=== PATIENT | female | born 1965 | race African-American/Black ===

== ENCOUNTER 2017-06-05 18:40 | Emergency (ER) | payer OTHER ==
[2017-06-05 19:06] VITALS: BP 118/68; PULSE 92; TEMP 97.9; BMI 40.6
[2017-06-05] MEDS ORDERED: ACETAMINOPHEN 325 MG TABLET (FP) ONE (19:36)
[2017-06-05] MEDS ORDERED: ACETAMINOPHEN 325 MG TABLET (FP) PO ONE (19:37)
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
== END 2017-06-05 21:56 | disposition home or self-care (01) ==
LOC: JERFT 18:40
DX: S09.8XXA Other specified injuries of head, initial encounter (principal); R51 Headache; V48.6XXA Car passenger injured in noncollision transport accident in traffic accident, initial encounter; Y92.414 Local residential or business street as the place of occurrence of the external cause; Y93.89 Activity, other specified; Y99.8 Other external cause status
CPT/HCPCS: 70450-TC; 72125-TC; 99281-25

== ENCOUNTER → 2017-09-07 | Day surgery (SDC) | payer OTHER ==
--- NOTE | 2017-09-12 16:51 | PATH ---
Cytology Non-Gynecological Report Patient Name: KYRA TRACEY [facility]. Rec. #: [id number] /Age/Gender: 1965 (Age: 52) / F Account: [id number] Location: Taken: 09/07/2017 Received: 09/07/2017 Reported: 09/12/2017 Physicians: Monique Watson M.D. Specimen(s) Received FNA RIGHT 2.43 X 1.57 X 1.26 CM Clinical History Right nodule, 2.43 x 1.57 x 1.26 cm Final Diagnosis THYROID, RIGHT, FINE NEEDLE ASPIRATION: SATISFACTORY FOR EVALUATION. BETHESDA : PAPILLARY THYROID CARCINOMA. ATYPICAL FOLLICULAR CELLS WITH ENLARGED NUCLEI, NUCLEAR GROOVES, INTRANUCLEAR CLEARING, AND INTRANUCLEAR PSEUDOINCLUSIONS DISPERSED PAPILLARY AND SYNCITIAL FRAGMENTS. Comment: Findings discussed with Dr. Soriano. Electronically Signed Philomena Persaud M.D. Gross Description Received are eight direct smears, four of which are air-dried and Diff-Quik stained, and four of which are alcohol fixed and Pap stained. Also received is 20 ml of bloody formalin from which one cellblock is prepared.
== END | disposition home or self-care (01) ==
LOC: JRADIR 08:55
PROVIDERS: ATTEND Specialist
PROC: 0G9H3ZX Drainage of Right Thyroid Gland Lobe, Percutaneous Approach, Diagnostic (ICD-10-PCS; principal; 2017-09-07)
DX: E04.1 Nontoxic single thyroid nodule (principal)
CPT/HCPCS: 76942; 88173; 88305-TC

== ENCOUNTER 2017-10-27 05:26 | Inpatient (IN) | payer OTHER ==
[2017-10-26 09:54] VITALS: BMI 40.9
--- NOTE | 2017-10-27 09:35 | HP ---
History & Physical Update - History History: No Change - Physical Physical: No Change - Assessment Assessment: No Change - Plan Plan: No Change (Patient with carcinoma of thyroid, for total thyroidectomy, possible neck dissection.)
[2017-10-27] MEDS ORDERED: ONDANSETRON 4 MG/2 ML VIAL IVPUSH PRN (10:33)
[2017-10-27] MEDS ORDERED: LACTATED RINGERS SOLUTION 1,000 ML IV SCH (10:45)
[2017-10-27] MEDS ORDERED: SUCCINYLCHOLINE CHLORIDE 200 MG/10 ML VIAL ONE (10:56)
[2017-10-27] MEDS ORDERED: fentaNYL CITRATE 250 MCG/5 ML VIAL ONE (10:56)
[2017-10-27] MEDS ORDERED: PROPOFOL 20 ML ONE ×4 (10:56)
[2017-10-27] MEDS ORDERED: MIDAZOLAM HCL 2 MG/2 ML SINGLE DOSE VIAL ONE ×2 (10:57→15:28)
[2017-10-27] MEDS ORDERED: LIDOCAINE HCL/PF 2% SDV 5ML VIAL ONE ×2 (11:01→12:04)
[2017-10-27] MEDS ORDERED: DEXAMETHASONE SOD PHOSPHATE 4 MG/1 ML VIAL ONE ×2 (11:01→14:44)
--- NOTE | 2017-10-27 14:30 | OP ---
Operative Note - Note: Operative Date: 10/27/17 Pre-Operative Diagnosis: carcinoma of thyroid gland,. Nodule in right lobe of thyroid gland. Operation: Total thyroidectomy with central compartment neck dissection , and modified right neck dissection. Nerve monitoring with Nervana nerve monitor. Findings: Large nodule in inferior pole of right lobe of thyroid gland with attachment to the strap mucles. Right Jugular chain , clean with no lymphadenopathy. Post-Operative Diagnosis: Same as Pre-op Surgeon: Isaura Soriano Coordinator Of Placement: Andree Landa Anesthesia: General Specimens Removed: 1) Total thyroid. 2) Central compartment lymph nodes. Estimated Blood Loss (mls): 25 Operative Report Dictated: Yes
--- NOTE | 2017-10-27 15:04 | SURG ---
Surgery Computer Forensics Analyst Note Computer Forensics Analyst: Andree Landa PA-C Date of Service: 10/27/17 Diagnosis: carcinoma of thyroid gland,. Nodule in right lobe of thyroid gland. Procedure: Total thyroidectomy with central compartment neck dissection , and modified right neck dissection. Nerve monitoring with Nervana nerve monitor I was present for the entirety of the operative procedure. For further detail, please refer to operative report. Visit type - Case Type Case Type: Scheduled - Emergency Emergency Visit: No - New patient This patient is new to me today: Yes Date on this admission: 10/27/17
[2017-10-27] MEDS ORDERED: ACETAMINOPHEN 1000 MG/100 ML VIAL (NON FORMULARY) IVPB ONE (15:11)
[2017-10-27] MEDS ORDERED: ACETAMINOPHEN INJECTION 100 ML IVPB ONE (15:23)
[2017-10-27] MEDS ORDERED: MIDAZOLAM HCL 2 MG/2 ML SINGLE DOSE VIAL IVPUSH ONE (15:31)
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
[2017-10-27] MEDS: oxyCODONE HCL 5 MG TABLET PO PRN (21:27)
[2017-10-27] MEDS: CALCIUM (OYSTER SHELL) 500 MG TABLET (FP) PO SCH (21:28)
[2017-10-27] MEDS: ACETAMINOPHEN 325 MG TABLET (FP) PO PRN (23:39)
[2017-10-28] MEDS: oxyCODONE HCL 5 MG TABLET PO PRN ×2 (04:13→10:46)
[2017-10-28] MEDS ORDERED: PT OWN MED DRAWER 7, Y5N ONE (05:44)
[2017-10-28] MEDS: ACETAMINOPHEN 325 MG TABLET (FP) PO PRN (07:30)
--- NOTE | 2017-10-28 09:18 | CONSULT ---
Consult Consult Specialty:: MEDICINE Referred by:: DR WEAVER Reason for Consultation:: THYROIDECTOMY/HTN - History of Present Illness Chief Complaint: S/P THYROIDECTOMY + THYROID CARCINOMA History of Present Illness: 52 Y/O FEMALE WITH HISTORY OF HTN, OBESITY, OA, DEPRESSION, ANXIETY HERE FOR THYRODECTOMY FOR +THYROID CARCINOMA - History Source History Provided By: Patient Limitations to Obtaining History: No Limitations - Past Medical History Cardio/Vascular: Yes: HTN ...LMP Comment: hysterectomy Psych: Yes: Depression Musculoskeletal: Yes: Osteoarthritis - Alcohol/Substance Use Hx Alcohol Use: Yes (socially) - Smoking History Smoking history: Never smoked Home Medications - Allergies Allergies/Adverse Reactions: Allergies Allergy/AdvReac Type Severity Reaction Status Date / Time No Known Allergies Allergy Verified 10/26/17 09:38 - Home Medications Home Medications: Ambulatory Orders Bupropion HCl [Wellbutrin Xl -] 150 mg PO DAILY 10/26/17 Cetirizine HCl [Zyrtec -] 10 mg PO DAILY PRN 10/26/17 Escitalopram Oxalate [Lexapro -] 20 mg PO DAILY 10/26/17 Esomeprazole Magnesium [Nexium 24Hr] 20 mg PO DAILY 10/26/17 Gabapentin [Neurontin -] 300 mg PO Q8H PRN 10/26/17 Losartan/Hydrochlorothiazide [Losartan-Hctz 100-12.5 mg Tab] 1 each PO DAILY Meclizine HCl 25 mg PO Q8H PRN 10/26/17 Naproxen 500 mg PO Q8H PRN 10/26/17 Nifedipine [Nifedipine ER] 60 mg PO DAILY 10/26/17 Review of Systems - Review of Systems Constitutional: reports: No Symptoms Eyes: reports: No Symptoms HENT: reports: Other Neck: reports: Other (CLEAN MIDLINE SCAR NO ERYTHEMA OR DISCHARGE) Cardiovascular: reports: No Symptoms Respiratory: reports: No Symptoms Gastrointestinal: reports: No Symptoms (C/O RETENTION) Integumentary: reports: No Symptoms Endocrine: reports: No Symptoms Hematology/Lymphatic: reports: No Symptoms Psychiatric: reports: No Symptoms Physical Exam Vital Signs: Vital Signs Temperature 97.4 F L 10/28/17 07:53 Pulse Rate 76 10/28/17 07:53 Respiratory Rate 20 10/28/17 07:53 Blood Pressure 142/88 10/28/17 07:53 O2 Sat by Pulse Oximetry (%) 95 10/28/17 00:10 Constitutional: Yes: No Distress Eyes: Yes: WNL HENT: Yes: WNL Neck: Yes: Other (CLEAN MIDLINE SCAR WITH ICE PACK ON FOR SWELLING) Cardiovascular: Yes: WNL Respiratory: Yes: WNL Gastrointestinal: Yes: WNL Renal/: Yes: WNL Musculoskeletal: Yes: WNL Extremities: Yes: WNL Edema: No Peripheral Pulses WNL: Yes Integumentary: Yes: WNL Wound/Incision: Yes: Clean/Dry, Dressing Dry and Intact Neurological: Yes: WNL ...Motor Strength: WNL Psychiatric: Yes: WNL Problem List - Problems (1) S/P thyroidectomy Code(s): Z98.890 - OTHER SPECIFIED POSTPROCEDURAL STATES (2) Hypertension Code(s): I10 - ESSENTIAL (PRIMARY) HYPERTENSION (3) Osteoarthritis Code(s): M19.90 - UNSPECIFIED OSTEOARTHRITIS, UNSPECIFIED SITE (4) Obesity (BMI 30-39.9) Code(s): E66.9 - OBESITY, UNSPECIFIED Assessment/Plan PAIN CONTROL DVT PROPHYLAXIS ICE TO NECK TO PREVENT SWELLING OOB TO CHAIR F/U WITH DR WEAVER NO OBJECTION TO DC TODAY
[2017-10-28] MEDS: CALCIUM (OYSTER SHELL) 500 MG TABLET (FP) PO SCH (09:51)
[2017-10-28] MEDS ORDERED: ESCITALOPRAM OXALATE 20 MG TABLET (FP) PO SCH (10:00)
[2017-10-28] MEDS ORDERED: NIFEdipine E.R 60 MG TABLET (UD) PO SCH (10:00)
[2017-10-28] MEDS ORDERED: LOSARTAN POTASSIUM 50 MG TABLET (FP) PO SCH (10:00)
[2017-10-28] MEDS ORDERED: HYDROCHLOROTHIAZIDE 12.5 MG CAPSULE (FP) PO SCH (10:00)
[2017-10-28] MEDS ORDERED: ACETAMINOPHEN 325 MG TABLET (FP) PO ONE (10:00)
[2017-10-28 12:07] VITALS: BP 144/74; PULSE 83; TEMP 98.4
--- NOTE | 2017-10-28 12:17 | PN ---
Progress Note, Physician - Current Medication List Current Medications: Active Medications Acetaminophen (Tylenol -) 325 mg PO Q6H PRN PRN Reason: PAIN LEVEL 1-5 Last Admin: 10/28/17 07:30 Dose: 325 mg Bupropion HCl (Wellbutrin Xl -) 150 mg PO DAILY [facility] Last Admin: 10/28/17 11:01 Dose: 150 mg Calcium Carbonate (Os-Girish 500mg -) 500 mg PO BID [facility] Last Admin: 10/28/17 09:51 Dose: 500 mg Escitalopram Oxalate (Lexapro -) 20 mg PO DAILY [facility] Last Admin: 10/28/17 10:46 Dose: 20 mg Hydrochlorothiazide (Hctz -) 12.5 mg PO DAILY [facility] Last Admin: 10/28/17 09:50 Dose: 12.5 mg Lactated Ringer's (Lactated Ringers Solution) 1,000 mls @ 75 mls/hr IV ASDIR [facility] Last Admin: 10/27/17 17:00 Dose: 100 mls Losartan Potassium (Cozaar -) 100 mg PO DAILY [facility] Last Admin: 10/28/17 09:50 Dose: 100 mg Nifedipine (Procardia Xl -) 60 mg PO DAILY [facility] Last Admin: 10/28/17 09:50 Dose: 60 mg Ondansetron HCl (Zofran Injection) 4 mg IVPUSH Q6H PRN PRN Reason: NAUSEA AND/OR VOMITING Oxycodone HCl (Roxicodone -) 5 mg PO Q6H PRN PRN Reason: PAIN LEVEL 1-5 Last Admin: 10/28/17 10:46 Dose: 5 mg - Objective Vital Signs: Vital Signs Temperature 98.4 F 10/28/17 10:00 Pulse Rate 83 10/28/17 10:00 Respiratory Rate 20 10/28/17 10:00 Blood Pressure 144/74 10/28/17 10:00 O2 Sat by Pulse Oximetry (%) 95 10/28/17 00:10 Assessment/Plan Neck wound is clean Drain removed. Voice is normal. Serum calcium is normal. Plan : Discharge home with calcium and synthroid by mouth.
--- NOTE | 2017-11-01 17:24 | PATH ---
Surgical Pathology Report Patient Name: KYRA TRACEY [facility]. Rec. #: [id number] /Age/Gender: 1965 (Age: 52) / F Account: [id number] Location: [facility]/SURG Taken: 10/27/2017 Received: 10/27/2017 Reported: 11/01/2017 Physicians: Serafin Soriano M.D. Specimen(s) Received A: THYROID, TOTAL LOBE B: CENTRAL COMPARTMENT LYMPH C: TRACHEAL LYMPH NODE Clinical History Thyroid cancer Final Diagnosis A. THYROID, TOTAL THYROIDECTOMY: PAPILLARY CARCINOMA, CLASSIC TYPE, MULTIFOCAL, PRESENT IN LEFT AND RIGHT THYROID LOBE. THE LARGEST CARCINOMA MEASURES 1.7 CM IN GREATEST DIMENSION, MICROSCOPICALLY. EXTRATHYROIDAL EXTENSION NOT IDENTIFIED. MARGINS ARE UNINVOLVED BY CARCINOMA. THE CARCINOMA IS AT LESS THAN 1 MM FROM THE INKED MARGIN. LYMPHOVASCULAR INVASION NOT IDENTIFIED. PATHOLOGIC STAGE (PTNM, AJCC 8TH EDITION): pT1b pN0 ALSO SEE SURGICAL PATHOLOGY CANCER CASE SUMMARY BELOW. B. CENTRAL COMPARTMENT LYMPHADENECTOMY: EIGHT LYMPH NODES, NEGATIVE FOR METASTATIC CARCINOMA (0/8). C. TRACHEAL LYMPH NODE, EXCISION: ONE LYMPH NODE, NEGATIVE FOR METASTATIC CARCINOMA (0/1). Comments Thyroid: Surgical Pathology Cancer Case Summary (Based on AJCC 8 th edition) Procedure _x_ Total thyroidectomy Tumor Focality _x_ Multifocal Tumor Site _x_ Right lobe _x_ Left lobe Tumor Size Greatest dimension (centimeters): 1.7 cm Histologic Type Papillary Carcinomas _x_ Papillary carcinoma, classic (usual, conventional) Margins _x_ Uninvolved by carcinoma Angioinvasion (Vascular Invasion) _x_ Not identified Lymphatic Invasion _x_ Not identified Extrathyroidal Extension _x_ Not identified Regional Lymph Nodes Number of Lymph Nodes Involved: 0 Number of Lymph Nodes Examined: 9 Specify Maggy Levels _x__ Level - pretracheal, paratracheal and prelaryngeal/Delphian, perithyroidal (central compartment dissection) Pathologic Stage Classification (pTNM, AJCC 8th Edition) TNM Descriptors (required only if applicable) _x_ m (multiple primary tumors) For Papillary, Follicular, Poorly Differentiated, Hurthle Cell and Anaplastic Thyroid Carcinoma Primary Tumor (pT) _x_ pT1b: Tumor >1 cm but =2 cm in greatest dimension, limited to the thyroid Regional Lymph Nodes (pN) _x_ pN0: No evidence of locoregional lymph node metastasis Additional Pathologic Findings _x_ nodular follicular disease (eg, nodular hyperplasia, goitrous thyroid) Electronically Signed Delta Lindsay M.D. Gross Description A. Received fresh labeled "thyroid," is a 19 g total thyroidectomy specimen. The left lobe measures 3.8 x 2.8 x 1.5 cm, the isthmus measures 1.5 x 1.0 x 0.5 cm and the right lobe measures 4.0 x 3.2 x 2.2 cm. The outer capsule is red brown and intact. The left lobe is inked black, the right lobe is inked red and the isthmus is inked green. Sectioning of the left lobe reveals a 0.5 cm in greatest dimension branham, firm, solid nodule in the superior pole. There is an additional 0.2 cm in greatest dimension branham, solid nodule in the lower pole of the left lobe. Sectioning of the right lobe displays a 0.3 cm in greatest dimension branham, solid nodule in the superior pole and a 1.7 cm in greatest dimension branham, firm, solid nodule in the central to lower portion of the specimen. The remaining thyroid parenchyma is red-brown and beefy. [employer] sections are submitted in 15 cassettes as follows: 1-6-left lobe from superior to inferior (larger, superior mass in cassette 1; smaller, inferior mass in cassettes 4-5); 7-isthmus; 8-15-right lobe from superior to inferior (smaller, superior mass in cassettes 9-10; larger central to inferior mass in cassettes 11-14). B. Received in formalin labeled "central compartment lymph node adenectomy," is a 4.0 x 2.5 x 0.5 cm portion of yellow, lobulated adipose tissue. Sectioning reveals multiple possible lymph nodes ranging from 0.2-0.6 cm in greatest dimension. The specimen is entirely submitted in 8 cassettes as follows: 1-three possible lymph nodes; 2-5-one possible lymph node each; 8-5-dvwlwzema tissue. C. Received fresh labeled "tracheal lymph node," is a 0.7 cm in greatest dimension branham portion of soft tissue, possibly consistent with a lymph node. The specimen is submitted in toto in one cassette. 10/27/[address] [facility]2017
== END 2017-10-28 14:18 | disposition home or self-care (01) | DRG 404 ==
LOC: JSAMEDAYSX 05:26 → EDSTATUS 11:30 → J8W 18:15
PROVIDERS: ADMIT Specialist; ATTEND Specialist
PROC: 07B20ZX Excision of Left Neck Lymphatic, Open Approach, Diagnostic (ICD-10-PCS; 2017-10-27)
PROC: 07T20ZZ Resection of Left Neck Lymphatic, Open Approach (ICD-10-PCS; 2017-10-27)
PROC: 07T10ZZ Resection of Right Neck Lymphatic, Open Approach (ICD-10-PCS; 2017-10-27)
PROC: 4A1174G Monitoring of Peripheral Nervous Electrical Activity, Intraoperative, Via Natural or Artificial Opening (ICD-10-PCS; 2017-10-27)
PROC: 0GTK0ZZ Resection of Thyroid Gland, Open Approach (ICD-10-PCS; principal; 2017-10-27 11:00)
DX: C73 Malignant neoplasm of thyroid gland (principal); Z68.41 Body mass index [BMI] 40.0-44.9, adult; I10 Essential (primary) hypertension; E66.9 Obesity, unspecified; M19.90 Unspecified osteoarthritis, unspecified site; F32.9 Major depressive disorder, single episode, unspecified; Z90.710 Acquired absence of both cervix and uterus; F41.8 Other specified anxiety disorders; G47.30 Sleep apnea, unspecified
CPT/HCPCS: 36415; 82310; 82330; 86850; 86900; 86901; 88307-TC; 94660; 94760; J0131

== ENCOUNTER → 2018-01-05 | Day surgery (SDC) | payer OTHER ==
[2018-01-04 11:15] VITALS: BMI 41.9
[~2018-01-05] MED LIST: BUPIVACAINE HCL/PF 0.25% (2.5MG/ML) 10 ML VIAL IJ ONE; DEXAMETHASONE SOD PHOSPHATE 4 MG/1 ML VIAL ONE; KETOROLAC TROMETHAMINE 30 MG/1 ML VIAL ONE; LACTATED RINGERS SOLUTION 1,000 ML IV SCH; LIDOCAINE HCL/PF 2% SDV 5ML VIAL ONE; MIDAZOLAM HCL 2 MG/2 ML SINGLE DOSE VIAL ONE; ONDANSETRON 4 MG/2 ML VIAL IVPUSH PRN; ONDANSETRON 4 MG/2 ML VIAL ONE; PROPOFOL 20 ML ONE; ceFAZolin SODIUM 1 GM VIAL ONE; oxyCODONE HCL 5 MG TABLET ONE; oxyCODONE HCL 5 MG TABLET PO PRN
[2018-01-05 13:26] VITALS: TEMP 97.6
[2018-01-05 18:00] VITALS: BP 118/68; PULSE 80
--- NOTE | 2018-01-06 12:58 | OP ---
DATE OF OPERATION: 01/05/2018 SURGEON: Naveed Seth MD ASSISSTANT: VEENA Lorenzo PREOPERATIVE DIAGNOSIS: 1. Right knee medial and lateral meniscal tears. 2. Right knee cartilage injury. 3. Right knee synovitis. POSTOPERATIVE DIAGNOSIS: 1. Right knee medial and lateral meniscal tears. 2. Right knee cartilage injury. 3. Right knee synovitis. PROCEDURE: 1. Right knee arthroscopy with partial meniscectomies of medial and lateral meniscus (CPT code 22122). 2. Right knee arthroscopy with chondroplasty and abrasoplasty ( CPT code 2979). 3. Right knee arthroscopy with synovectomy including removal of medial plica (CPT code 2975). FINDINGS: 1. Medial meniscus body tear. 2. Lateral meniscus body and posterior horn tear. 3. Synovitis, patellofemoral and medial lateral notch area. 4. Grade 2-3 cartilage injury in the medial femoral condyle. 5. ACL and PCL intact. 6. Diffuse grade 2-3 cartilage lateral tibial plateau. 7. Central grade 2 cartilage injury patellofemoral trochlea with area grade 4 changes inside the medial plica adhesions. DESCRIPTION OF PROCEDURE: Informed consent was obtained. The patient came to the operating room, where the lower extremity was prepped and draped in a sterile fashion. A tourniquet was placed on the upper thigh, but not inflated. Using standard arthroscopic technique, a lateral incision and portal was made to allow for introduction of the camera into the suprapatellar bursa. This was then taken to the medial joint line, where under direct visualization, a medial incision and portal was made. Excessive synovium noted in the medial, lateral and patellofemoral and notch area was removed by an upbiter, shaver and Bovie cautery. This was found to bring in inflammatory tissue into the joint surface, a source of pain and dysfunction. Probing of the medial and lateral meniscus found tears, as described in the findings. These were removed with the upbiter and shaver and taken back to a stable rim. Grade 2 to 3 degenerative changes were treated with a chondroplasty, removing all flaking surfaces with low-setting Bovie along the periphery to prevent further flaking. Grade 4 changes, as noted, were treated with an abrasoplasty, creating a bleeding surface at the bone/cartilage interface. Aggressive debridement with shaver/chao created bleeding surface. Micro fracture also done when indicated in findings. All areas of the knee were once again reexamined. The knee was then drained and a single suture was placed in all portals. A sterile dressing was placed and the patient was transferred to the recovery room without complication. The PA listed above was present and assisted at surgery. Their presence was absolutely medically necessary for the completion of the procedure. They helped hold the arthroscopy, pass instruments (and implants when indicated) and the procedure could not have been completed without their assistance. The PA listed above was present and assisted at surgery. Their presence was absolutely medically necessary for the completion of the procedure. They helped hold the arthroscopy, pass instruments (and implants when indicated) and the procedure could not have been completed without their assistance. NAVEED SETH M.D. [id number]
--- NOTE | 2018-01-09 17:03 | PATH ---
Surgical Pathology Report Patient Name: KYRA TRACEY [facility]. Rec. #: [id number] /Age/Gender: 1965 (Age: 52) / F Account: [id number] Location: [facility] AMBUL[facility] Taken: 01/05/2018 Received: 01/05/2018 Reported: 01/09/2018 Physicians: Naveed Lamas M.D. Specimen(s) Received RIGHT KNEE SHAVINGS Clinical History Right knee internal derangement Final Diagnosis KNEE SHAVINGS, RIGHT, ARTHROSCOPY: FRAGMENTS OF CARTILAGE, DENSE FIBROCONNECTIVE TISSUE, ADIPOSE TISSUE, AND REACTIVE SYNOVIUM. Electronically Signed Philomena Persaud M.D. Gross Description Received in formalin, labeled "right knee shavings," is a 5.0 x 4.8 x 0.4 cm. aggregate of branham-yellow soft tissue fragments. A business center representative portion is submitted in one cassette. 01/08/2018 saudi01/08/2018
== END | disposition home or self-care (01) ==
LOC: FASU 10:35
PROVIDERS: ATTEND Orthopaedic Surgery
PROC: 0SBC4ZZ Excision of Right Knee Joint, Percutaneous Endoscopic Approach (ICD-10-PCS; 2018-01-05)
PROC: 0SBC4ZZ Excision of Right Knee Joint, Percutaneous Endoscopic Approach (ICD-10-PCS; 2018-01-05)
PROC: 0SBC4ZZ Excision of Right Knee Joint, Percutaneous Endoscopic Approach (ICD-10-PCS; principal; 2018-01-05 12:25)
DX: S83.241A Other tear of medial meniscus, current injury, right knee, initial encounter (principal); S83.281A Other tear of lateral meniscus, current injury, right knee, initial encounter; S83.8X1A Sprain of other specified parts of right knee, initial encounter; M65.861 Other synovitis and tenosynovitis, right lower leg; X58.XXXA Exposure to other specified factors, initial encounter; Y93.9 Activity, unspecified; Y92.9 Unspecified place or not applicable
CPT/HCPCS: 88304-TC; 94760

== ENCOUNTER 2023-10-02 17:35 | Emergency (ER) | payer OTHER ==
[2023-10-02 18:43] VITALS: BP 127/64; PULSE 83; RESP 17; TEMP 98.5; BMI 43.2
[2023-10-02 18:58] LABS: BASO % 0.8 % (0-2.0); EOS % 5.5 % (0-4.5); HEMATOCRIT 32.9 % (32.4-45.2); HEMOGLOBIN 10.5 GM/dL (10.7-15.3); LYMPH % 24.5 % (8-40); MCH 23.5 pg (25.7-33.7); MCHC 31.9 g/dl (32.0-36.0); MEAN CELL VOLUME 73.7 fl (80-96); MEAN PLT VOLUME 7.4 fl (7.5-11.1); MONO % 12.7 % (3.8-10.2); NEUT % 56.5 % (42.8-82.8); PLATELET COUNT 641 10^3/uL (134-434); RBC 4.47 M/mm3 (3.60-5.2); RDW 16.3 % (11.6-15.6); WHITE BLOOD COUNT 6.6 K/mm3 (4.0-10.0)
[2023-10-02 19:06] LABS: INR 0.93 (0.83-1.09); PROTHROMBIN TIME (PATIENT) 10.5 SEC (9.7-13.0)
[2023-10-02 19:54] LABS: POTASSIUM 3.6 mmol/L (3.5-5.1)
[2023-10-02 19:56] LABS: CALCIUM 10.1 mg/dL (8.5-10.1)
[2023-10-02 19:57] LABS: ALBUMIN 3.6 g/dl (3.4-5.0); BLOOD UREA NITROGEN 19.5 mg/dL (7-18)
[2023-10-02 20:00] LABS: CREATININE 1.2 mg/dL (0.55-1.3)
[2023-10-02 20:02] LABS: BILIRUBIN,TOTAL 0.2 mg/dL (0.2-1); TOT PROT 7.6 g/dl (6.4-8.2)
[2023-10-02 20:04] LABS: PH,URINE 5.5 (5.0-8.0); URINE APPEARANCE CLEAR; URINE BILIRUBIN NEGATIVE (NEGATIVE); URINE COLOR YELLOW; URINE GLUCOSE (UA) 1+ (NEGATIVE); URINE KETONE NEGATIVE (NEGATIVE); URINE LEUK ESTERASE NEGATIVE (NEGATIVE); URINE NITRITE NEGATIVE (NEGATIVE); URINE PROTEIN NEGATIVE (NEGATIVE); URINE UROBILINOGEN 0.2 mg/dL (0.2-1.0)
[2023-10-02] MEDS ORDERED: ACETAMINOPHEN 325 MG TABLET (FP) ONE (23:18)
[2023-10-03] MEDS: ACETAMINOPHEN 500 MG TABLET (FP) PO ONE (00:08)
== END 2023-10-03 01:31 | disposition home or self-care (01) ==
LOC: JER 17:35
DX: R47.9 Unspecified speech disturbances (principal); M25.561 Pain in right knee
CPT/HCPCS: 36415; 70450-TC; 71045-TC-FY; 80053; 81003; 84484; 85025; 85610; 85730; 87086; 93005; 93010; 99285-25

== ENCOUNTER → 2024-07-11 | Day surgery (SDC) | payer OTHER | END | disposition home or self-care (01) | LOC: FMAMMOTONE 08:28 | PROVIDERS: ATTEND Family Medicine | PROC: 0H9U3ZX Drainage of Left Breast, Percutaneous Approach, Diagnostic (ICD-10-PCS; principal; 2024-07-11) | DX: N60.32 Fibrosclerosis of left breast (principal) | CPT/HCPCS: 19081; 76098-TC-FY; 87899; 88305-TC; A4648 ==